=== PATIENT | male | born 1955 | race Caucasian/White ===

== ENCOUNTER 2022-11-05 12:04 | Outpatient (CLI) | payer OTHER, SELFPAY ==
--- NOTE | 2022-11-05 12:21 | XR_ITS ---
WS: [email or web address] Cervical spine, 3 views, 11/05/2022 Clinical Data: NECK STRAIN Comparison: None. Findings: No compression fractures are seen. There is disc space narrowing at C3-C4, C5-C6 and C6-C7. At these levels there are anterior osteophytes. There is no prevertebral soft tissue swelling. The o dontoid is unremarkable. The soft tissues of the neck and the lung apices are normal. Impression: Multilevel osteoarthritis and degenerative disc narrowing.
--- NOTE | 2022-11-05 12:21 | XR_ITS ---
WS: [email or web address] Left knee, 3 views, 11/05/2022 Clinical Data: HX OF STRAIN Comparison: None. Findings: No fractures or dislocations are seen. The joint spaces are normal. The patella is intact. The soft t issues are unremarkable. Vascular calcification is noted. 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 Kellgren-Alden Classification: grade 0 (none): definite absence of x-ray changes of osteoarthritis
--- NOTE | 2022-11-05 12:21 | XR_ITS ---
WS: [email or web address] Lumbar spine, 5 views including lateral in neutral, flexion and extension position, 11/05/2022 Clinical Data: HX OF LUMBAR STRAIN Comparison: None. Findings: No compression fractures or subluxation is seen. No disc space narrowing is seen. The transverse proc esses and SI joints are normal. There is anterior osteoarthritic spurring at L4 and L5. There is no limitation of motion or subluxati on on flexion or extension. Impression: 1. Osteoarthritis at L4 and L5. 2. Negative for limitation of motion or subluxation on flexion or extension.
--- NOTE | 2022-11-05 12:21 | XR_ITS ---
WS: [email or web address] Right shoulder, 3 views, 11/05/2022 Clinical Data: R SHOULDER STRAIN W/O IMAGES Comparison: None. Findings: No fractures or dislocations are seen. The AC joint is normal. The adjacent right clavicle, right sca pula and ribs are normal. The soft tissues are unremarkable. Impression: Negative right shoulder.
--- NOTE | 2022-11-05 12:21 | XR_ITS ---
WS: [email or web address] Sinus series, 3 views Clinical Data: CHRONIC CONGESTION Comparison: None. Findings: There is partial opacification of the left maxillary sinus but no air-fluid level. The right maxillar y sinus is clear. There is no development of the left frontal sinus. The ethmoid and sphenoid sinuses are normal. The orbits are normal. No abnormal intracranial calcifications are seen. Impression: Possible chronic left maxillary sinusitis.
--- NOTE | 2022-11-05 12:21 | XR_ITS ---
WS: [email or web address] Chest 2 views, 11/05/2022 Clinical Data: SHORT OF BREATH/ABESTOS EXPOSURE Comparison: None. Findings: No nodules, masses or effusions are seen. The heart is normal. The pulmonary vascularity is not increased. No pneumonia or pneumothorax is seen. The diaphragms are flattened. Impression: Hyperinflation.
== END 2022-11-05 12:05 | disposition home or self-care (01) ==
PROVIDERS: PCP Family Medicine; Visit Provider Family Medicine
DX: S16.1XXA Strain of muscle, fascia and tendon at neck level, initial encounter (principal); R06.02 Shortness of breath; S39.012A Strain of muscle, fascia and tendon of lower back, initial encounter; X58.XXXA Exposure to other specified factors, initial encounter; R09.81 Nasal congestion; S46.911A Strain of unspecified muscle, fascia and tendon at shoulder and upper arm level, right arm, initial encounter; M47.816 Spondylosis without myelopathy or radiculopathy, lumbar region; M47.812 Spondylosis without myelopathy or radiculopathy, cervical region
CPT/HCPCS: 70220; 71046; 72040; 72110; 73030; 73562